=== PATIENT | female | born 1990 | race Caucasian/White ===

== ENCOUNTER → 2018-06-07 09:29 | Outpatient (CLI) | payer OTHER, SELFPAY | PROVIDERS: Visit Provider Physician Assistant | DX: R30.0 Dysuria (principal) | CPT/HCPCS: 87077; 87086; 87186 ==

== ENCOUNTER 2022-02-18 16:53 | Emergency (ER) | payer OTHER, SELFPAY ==
[2022-02-18 17:07] VITALS: BP 132/74; PULSE 70; RESP 17; TEMP 37; O2SAT 99; BMI 23.0
[2022-02-18] MEDS: SODIUM CHLORIDE 0.9% 1,000 ML 1000 ML IV (17:29)
[2022-02-18 17:44] LABS: Alanine Aminotransferase 13 IU/L (<35); Albumin 4.1 g/dL (3.5-5.0); Albumin Globulin Ratio 1.4 (1.0-2.8); Alkaline Phosphatase 47 U/L (38-126); Aspartate Aminotransferase 27 IU/L (14-36); BUN Creatinine Ratio 13.6 (6-22); Bilirubin Total 0.7 mg/dL (0.2-1.3); Blood Urea Nitrogen 8 mg/dL (7-17); Calcium 9.3 mg/dL (8.4-10.2); Carbon Dioxide 24 mmol/L (22-32); Chloride 102 mmol/L (98-107); Estimated Glomerular Filt Rate > 60 mL/min (>60); Globulin 2.9 g/dL (1.7-4.1); Glucose 99 mg/dL (70-100); HEMOLYSIS 20 (0-50); Potassium 3.7 mmol/L (3.4-5.1); Sodium 134 mmol/L (137-145)
[2022-02-18 17:46] LABS: Add Manual Diff / Slide Review NO; Basophils Absolute Auto 0 /uL (0-100); Basophils Percent Auto 0.4 % (0-2); Eosinophils Absolute Auto 100 /uL (0-450); Eosinophils Percent Auto 0.9 % (2-4); Hematocrit 36.7 % (36-46); Hemoglobin 12.9 g/dL (12.0-16.0); Lymphocytes Absolute Auto 1900 /uL (1100-4500); Lymphocytes Percent Auto 16.6 % (25-40); Mean Corpuscular HGB Conc 35.1 % (30-36); Mean Corpuscular Hemoglobin 30.8 PG (26-34); Mean Corpuscular Volume 87.8 fL (80-100); Monocytes Absolute Auto 900 /uL (0-900); Monocytes Percent Auto 7.6 % (3-14); Neutrophils Absolute Auto 8400 /uL (1500-7000); Neutrophils Percent Auto 74.5 % (50-75); Platelet Count 208 X10^3/uL (150-400); Red Blood Cell Count 4.18 X10^6/uL (4.0-5.2); Red Cell Distribution Width 12.9 % (11.6-14.8); White Blood Cell Count 11.3 X10^3/uL (4.5-11.0)
[2022-02-18 18:15] VITALS: PULSE 80; O2SAT 99
[2022-02-18 18:30] VITALS: PULSE 66; O2SAT 100
[2022-02-18 19:00] VITALS: PULSE 75; O2SAT 99
--- NOTE | 2022-02-18 19:12 | ED.NAVMDI ---
HPI - Nausea/Vomiting/Diarrhea <Michael Drew PA-C - Last Filed: 02/19/22 12:08> General Chief complaint: Nausea/Vomiting/Diarrhea Stated complaint: Dehydration, No BM in 5 Days, 8 wks Time Seen by Provider: 02/18/22 18:26 Source: patient Mode of arrival: Ambulatory History of Present Illness HPI Narrative: Patient to the emergency room today with complaint of nausea, vomiting and constipation. Patient states this started about 2 weeks ago. Patient states the nausea started 1st about 2 weeks ago which progressed to constipation which started on Monday of this week. Patient admits that she is 8 weeks and has had nausea since the start of her . Also states this is her 1st denies any abdominal pain or pain with urination. Has taken Colace MiraLax and milk of magnesia with no relief of the constipation. Has taken Zofran 4 mg and 8 mg tablets to not really the nausea patient missed her 1st OB appointment is on Monday of next week at 9:00 a.m.. Relates her vomiting to not taking Zofran. Eating every day a week continues abdominal bowel movement. Denies taking any pain medicines at this time. Related Data Home Medications Medication Instructions Recorded Confirmed ascorbic acid (vitamin C) 500 mg mg PO 06/07/18 07/19/18 capsule omega-3 fatty acids 1,000 mg 1,000 mg PO DAILY 06/07/18 07/19/18 capsule (Fish Oil Concentrate) prenat.vits,darren,vpd-augb-ydnok 1 tab PO DAILY 06/07/18 07/19/18 levonorgestrel 20 mcg/24 hours (7 intrauterine 06/18/18 07/19/18 yrs) 52 mg intrauterine device (Mirena) umm (Zingiber officinalis) 250 250 mg PO DAILY 02/15/22 02/15/22 mg capsule hydroxyzine pamoate 25 mg capsule 25 - 50 mg PO BEDTIME PRN 02/15/22 02/15/22 valacyclovir 500 mg tablet 500 mg PO BID PRN 02/15/22 02/15/22 Previous Rx's Medication Instructions Recorded ondansetron 4 mg disintegrating 4 mg PO Q6H PRN nausea and 02/17/22 tablet vomiting #30 tabs Allergies Allergy/AdvReac Type Severity Reaction Status Date / Time No Known Drug Allergies Allergy Verified 02/18/22 17:10 Review of Systems <Michael Drew PA-C - Last Filed: 02/19/22 12:08> Review of Systems Narrative: R.O.S.: General: No fever, chills, fatigue or other concerns. Cardiovascular: No chest pain, palpitations or other Cardiovascular related concerns. Respiratory: No S.O.B. or other Respiratory related concerns. HEENT: No congestion, ear pain, rhinorrhea, sore throat or tinnitus Gastrointestinal: Nausea vomiting and constipation Skin: No rash or associated abnormalities Neurological: Awake, alert and in not apparent distress. No Headaches, changes in vision or other related neurological concerns. 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) current occupational exposures/hazards: No special livan needs: No travel history: recent (domestic) seatbelt use: always helmet use: No (encouraged to do so) water heater temp set < 120 deg: No working smoke detector in home: Yes fire extinguisher in home: Yes carbon monox detector in home: Yes firearms in home: Yes firearms unloaded and locked: Yes do you feel safe at home: Yes Smoking Status: Former smoker second hand exposure: No alcohol intake: former (occasional glass beer/wine when not ) substance use type: marijuana (stopped when she learned she was ) during the past year weight has: remained stable well-balanced diet: about half the time daily servings fruits/ve-4 caffeine: Yes (Aware of 200mg limit) Type(s) of exercise: yoga Smoking Status: Former smoker alcohol intake frequency: 0-2 drinks per day Substance Use Type: does not use Exam <Michael Drew PA-C - Last Filed: 02/19/22 12:08> Initial Vital Signs Initial Vital Signs: Vital Signs Temperature 98.6 F 02/18/22 17:07 Pulse Rate 70 02/18/22 17:07 Respiratory Rate 17 02/18/22 17:07 Blood Pressure 132/74 02/18/22 17:07 Pulse Oximetry 99 02/18/22 17:07 Oxygen Delivery Method 02/18/22 17:07 Resp Effort & Inspection: normal respiratory effort Auscultation: clear to auscultation bilaterally Cardio Rate: regular rate Rhythm: regular rhythm Heart Sounds: S1 normal and S2 normal GI Inspection: normal to inspection Palpation: soft and No tender Percussion: normal to percussion Auscultation: normal bowel sounds <Joanne Walker DO - Last Filed: 02/20/22 07:04> Initial Vital Signs Initial Vital Signs: Vital Signs Temperature 98.6 F 02/18/22 17:07 Pulse Rate 70 02/18/22 17:07 Respiratory Rate 17 02/18/22 17:07 Blood Pressure 132/74 02/18/22 17:07 Pulse Oximetry 99 02/18/22 17:07 Oxygen Delivery Method 02/18/22 17:07 Course <Michael Drew PA-C - Last Filed: 02/19/22 12:08> Orders Ordered: Discontinued Medications Sodium Chloride (Normal Saline 0.9%) 1,000 mls @ 1,000 mls/hr IV BOLUS ONE Stop: 02/18/22 18:26 Last Infusion: 02/18/22 18:25 Dose: 0 mls/hr Documented By: Admin: 02/18/22 17:29 Dose: 1,000 mls/hr Documented By: TIKA Magnesium Citrate (Magnesium Citrate 300 Ml Solution) 300 ml PO NOW ONE Stop: 02/18/22 19:10 Vital Signs Vital signs: Vital Signs - 8 hr 02/18/22 17:07 02/18/22 18:15 02/18/22 18:30 Temperature 98.6 F Pulse Rate 70 80 66 Respiratory Rate 17 Blood Pressure 132/74 Pulse Oximetry 99 99 100 Oxygen Delivery Method Room Air <Joanne Walker DO - Last Filed: 02/20/22 07:04> Orders Ordered: Discontinued Medications Sodium Chloride (Normal Saline 0.9%) 1,000 mls @ 1,000 mls/hr IV BOLUS ONE Stop: 02/18/22 18:26 Last Infusion: 02/18/22 18:25 Dose: 0 mls/hr Documented By: Admin: 02/18/22 17:29 Dose: 1,000 mls/hr Documented By: TIKA Magnesium Citrate (Magnesium Citrate 300 Ml Solution) 300 ml PO NOW ONE Stop: 02/18/22 19:10 Vital Signs Vital signs: Vital Signs - 8 hr 02/18/22 17:07 02/18/22 18:15 02/18/22 18:30 Temperature 98.6 F Pulse Rate 70 80 66 Respiratory Rate 17 Blood Pressure 132/74 Pulse Oximetry 99 99 100 Oxygen Delivery Method Room Air MDM - Nausea/Vomiting/Diarrhea <Michael Drew PA-C - Last Filed: 02/19/22 12:08> Lab Data Result diagrams: 02/18/22 17:24 02/18/22 17:24 Labs: Lab Results 02/18/22 02/18/22 02/18/22 Range/Units 17:24 17:24 18:56 WBC 11.3 H (4.5-11.0) X10^3/uL RBC 4.18 (4.0-5.2) X10^6/uL Hgb 12.9 (12.0-16.0) g/dL Hct 36.7 (36-46) % MCV 87.8 (80-100) fL MCH 30.8 (26-34) PG MCHC 35.1 (30-36) % RDW 12.9 (11.6-14.8) % Plt Count 208 (150-400) X10^3/uL Neut % (Auto) 74.5 (50-75) % Lymph % (Auto) 16.6 L (25-40) % Hood % (Auto) 7.6 (3-14) % Eos % (Auto) 0.9 L (2-4) % Baso % (Auto) 0.4 (0-2) % Neut # (Auto) 8400 H (0081-2042) /uL Lymph # (Auto) 1900 (6809-6258) /uL Hood # (Auto) 900 (0-900) /uL Eos # (Auto) 100 (0-450) /uL Baso # (Auto) 0 (0-100) /uL Sodium 134 L (137-145) mmol/L Potassium 3.7 (3.4-5.1) mmol/L Chloride 102 (98-107) mmol/L Carbon Dioxide 24 (22-32) mmol/L BUN 8 (7-17) mg/dL Creatinine 0.59 (0.52-1.04) mg/dL Estimated GFR > 60 (>60) mL/min BUN/Creatinine Ratio 13.6 (6-22) Glucose 99 (70-100) mg/dL Calcium 9.3 (8.4-10.2) mg/dL Total Bilirubin 0.7 (0.2-1.3) mg/dL AST 27 (14-36) IU/L ALT 13 (<35) IU/L Alkaline Phosphatase 47 (38-126) U/L Total Protein 7.0 (6.3-8.2) g/dL Albumin 4.1 (3.5-5.0) g/dL Globulin 2.9 (1.7-4.1) g/dL Albumin/Globulin Ratio 1.4 (1.0-2.8) Urine RBC 1-5/hpf (0-5/HPF) Urine WBC 0-1/hpf (0-5/HPF) Ur Squamous Epith Cells 5-10 /hpf H (0-5/HPF) Amorphous Sediment 3+ Urine Bacteria Few (2-10) H (None) Ur Culture Indicated? [employer] Point of Care Testing Glucose POC 99 Urine Dip Bedside Urine Glucose Negative Bedside Urine Bilirubin - Negative Bedside Urine Ketone - Negative Urine Specific [place] 0.015 Bedside Urine Occult Blood +/- Bedside Urine pH 6.5 Bedside Urine Protein - Negative Bedside Urine Urobilinogen - Negative Bedside Urine Nitrite - Negative Bedside Urine Leukocytes +/- 15 Esterase MDM Narrative Medical decision making narrative: Insert emergency room with complaint of nausea vomiting and constipation about 2 weeks. Patient states she is 8 weeks and has noticed nausea vomiting constipation since that time. Patient is taking Colace MiraLax and milk of magnesia and Zofran with failure to relieve constipation and nausea. Patient received 1 L of fluid in the ER today and states she feels a little bloated afterwards. This provider of informed patient that these types of symptoms can be expected in early . This provider ordered Mag citrate and advised patient to purchase Fleet enema OTC. Provider also advised patient to attempt to manually disimpact stool. Urinary tract infection was ruled out by urine. Patient advised to return for any emergent concerns arise. Patient agrees with plan <Joanne Walker DO - Last Filed: 02/20/22 07:04> Lab Data Labs: Lab Results 02/18/22 02/18/22 02/18/22 Range/Units 17:24 17:24 18:56 WBC 11.3 H (4.5-11.0) X10^3/uL RBC 4.18 (4.0-5.2) X10^6/uL Hgb 12.9 (12.0-16.0) g/dL Hct 36.7 (36-46) % MCV 87.8 (80-100) fL MCH 30.8 (26-34) PG MCHC 35.1 (30-36) % RDW 12.9 (11.6-14.8) % Plt Count 208 (150-400) X10^3/uL Neut % (Auto) 74.5 (50-75) % Lymph % (Auto) 16.6 L (25-40) % Hood % (Auto) 7.6 (3-14) % Eos % (Auto) 0.9 L (2-4) % Baso % (Auto) 0.4 (0-2) % Neut # (Auto) 8400 H (3728-2303) /uL Lymph # (Auto) 1900 (6605-1101) /uL Hood # (Auto) 900 (0-900) /uL Eos # (Auto) 100 (0-450) /uL Baso # (Auto) 0 (0-100) /uL Sodium 134 L (137-145) mmol/L Potassium 3.7 (3.4-5.1) mmol/L Chloride 102 (98-107) mmol/L Carbon Dioxide 24 (22-32) mmol/L BUN 8 (7-17) mg/dL Creatinine 0.59 (0.52-1.04) mg/dL Estimated GFR > 60 (>60) mL/min BUN/Creatinine Ratio 13.6 (6-22) Glucose 99 (70-100) mg/dL Calcium 9.3 (8.4-10.2) mg/dL Total Bilirubin 0.7 (0.2-1.3) mg/dL AST 27 (14-36) IU/L ALT 13 (<35) IU/L Alkaline Phosphatase 47 (38-126) U/L Total Protein 7.0 (6.3-8.2) g/dL Albumin 4.1 (3.5-5.0) g/dL Globulin 2.9 (1.7-4.1) g/dL Albumin/Globulin Ratio 1.4 (1.0-2.8) Urine RBC 1-5/hpf (0-5/HPF) Urine WBC 0-1/hpf (0-5/HPF) Ur Squamous Epith Cells 5-10 /hpf H (0-5/HPF) Amorphous Sediment 3+ Urine Bacteria Few (2-10) H (None) Ur Culture Indicated? [employer] Point of Care Testing Glucose POC 99 Urine Dip Bedside Urine Glucose Negative Bedside Urine Bilirubin - Negative Bedside Urine Ketone - Negative Urine Specific [place] 0.015 Bedside Urine Occult Blood +/- Bedside Urine pH 6.5 Bedside Urine Protein - Negative Bedside Urine Urobilinogen - Negative Bedside Urine Nitrite - Negative Bedside Urine Leukocytes +/- 15 Esterase Discharge Plan Departure Patient Disposition: Home Clinical Impression: Nausea and vomiting during Instructions: Nausea and Vomiting-Adult Activity Restrictions/Additional Instructions: *You have been diagnosed with Nausea & Vomiting during . I have ordered some Magnesium Citrate to be issued to you prior to discharge. I suggest you take the Magnesium Citrate as ordered. I also suggest you continue to Take the Miralax and attempt to manual disimpact your stool. I also suggest you purchase fleet enemas OTC and use to assist with the Constipation. He should expect your nausea to continue during the 1st month of . Please continue to take the Zofran for nausea. I also suggest she return to the ER should any emergent concerns arise. [ ] *What to do: *Please continue to take your regular medications as directed. [ ] New medication prescriptions sent to your pharmacy: [ ] [ ] New medication written as a paper prescription [x] New medications given *Please follow up with your primary care provider in 2-3 days, call for an appointment. Let them know you were seen in the Emergency Department and that we ask that you be seen in follow up. We will electronically transmit a record of today's note if your PCP is in our system *If you do not have a primary care provider please contact the [facility] Resource line at [phone]. They will ask some questions about your medical history and help get you set up with a doctor in the community. *Return to Emergency Department if you should have any new, worsening or concerning symptoms, such as [fever greater than 101 F, shaking chills, worsening pain, persistent vomiting or other bothersome symptoms] Prescriptions: No Action omega-3 fatty acids [Fish Oil Concentrate] 1,000 mg capsule 1,000 mg PO DAILY prenat.vits,darren,prb-bkua-sntzw tablet 1 tab PO DAILY ascorbic acid (vitamin C) 500 mg capsule PO ondansetron 4 mg tablet,disintegrating 4 mg PO Q6H PRN (Reason: nausea and vomiting) Qty: 30 2RF levonorgestrel [Mirena] 20 mcg/24 hr (5 years) intrauterine device Intrauterine hydroxyzine pamoate 25 mg capsule 25 - 50 mg PO BEDTIME PRN valacyclovir 500 mg tablet 500 mg PO BID PRN umm (Zingiber officinalis) 250 mg capsule 250 mg PO DAILY Referrals: Joann Nation MD [Primary Care Provider] - Visit Report Forms: Patient Portal/API <Joanne Walker DO - Last Filed: 02/20/22 07:04> Cosign ED Attending Dorianature Attestation: I was immediately available in the department for consultation. Documentation has been reviewed. I agree with assessment and plan.
[2022-02-18 19:24] VITALS: BP 119/63; PULSE 71; O2SAT 99
[2022-02-18 19:26] LABS: Amorphous Sediment Urine 3+; Bacteria Urine Few (2-10); RBC Urine 1-5/HPF (0-5/HPF); Squamous Epithelial Cell Urine 5-10 /HPF (0-5/HPF); WBC Urine 0-1/HPF (0-5/HPF)
--- NOTE | 2022-02-18 19:32 | PC.NURSE ---
Mag citrate not given due to availability MD aware. Unable to document on MAR
== END 2022-02-18 19:33 | disposition home or self-care (01) ==
PROVIDERS: Emergency Medicine; Emergency Provider Physician Assistant; PCP Family Medicine
DX: O21.9 Vomiting of pregnancy, unspecified (principal); Z3A.08 8 weeks gestation of pregnancy
CPT/HCPCS: 36415; 80053; 81003; 81015; 82962; 85025; 87086; 96360; 99284

== ENCOUNTER → 2022-03-23 08:41 | Outpatient (CLI) | payer OTHER, SELFPAY ==
[2022-03-23 15:45] LABS: Add Manual Diff / Slide Review NO; Basophils Absolute Auto 0 /uL (0-100); Basophils Percent Auto 0.4 % (0-2); Eosinophils Absolute Auto 200 /uL (0-450); Eosinophils Percent Auto 2.1 % (2-4); Hematocrit 33.7 % (36-46); Hemoglobin 11.7 g/dL (12.0-16.0); Lymphocytes Absolute Auto 1800 /uL (1100-4500); Lymphocytes Percent Auto 18.9 % (25-40); Mean Corpuscular HGB Conc 34.6 % (30-36); Mean Corpuscular Hemoglobin 30.5 PG (26-34); Monocytes Absolute Auto 600 /uL (0-900); Monocytes Percent Auto 6.9 % (3-14); Neutrophils Absolute Auto 6700 /uL (1500-7000); Neutrophils Percent Auto 71.7 % (50-75); Platelet Count 202 X10^3/uL (150-400); Red Blood Cell Count 3.83 X10^6/uL (4.0-5.2); White Blood Cell Count 9.4 X10^3/uL (4.5-11.0)
[2022-03-24 16:44] LABS: Hepatitis B Surface Antigen NEGATIVE s/c (NEGATIVE); Rubella Antibody IgG 2.5 IU/mL (>15)
[2022-03-24 17:08] LABS: HIV 1 & 2 Ab/Ag 4th Gen Combo NEGATIVE (NEGATIVE); Hep C Virus Ab w/Reflex Quant NEGATIVE s/c (NEGATIVE)
[2022-03-25 04:55] LABS: RPR Screen Non Reactive (Non Reactive)
[2022-03-25 08:31] LABS: Varicella IgG Antibody <135 index (Immune >165)
== END ==
PROVIDERS: PCP Family Medicine; Referring Provider Obstetrics & Gynecology; Visit Provider Obstetrics & Gynecology
DX: Z34.01 Encounter for supervision of normal first pregnancy, first trimester (principal)
CPT/HCPCS: 36415; 80055; 86787; 86803; 86850; 86900; 86901; 87389

== ENCOUNTER → 2022-04-20 08:05 | Outpatient (CLI) | payer OTHER, SELFPAY ==
[2022-04-20 13:22] LABS: Appearance Urine UA CLEAR; Bilirubin Urine UA NEGATIVE (NEGATIVE); Color Urine UA YELLOW; Glucose Urine UA NEGATIVE (Negative); Ketones Urine UA NEGATIVE (NEGATIVE); Leukocyte Esterase Urine UA TRACE (NEGATIVE); Nitrite Urine UA NEGATIVE (Negative); Occult Blood Urine UA 1+ (Negative); Protein Urine UA TRACE (Negative); Urobilinogen Urine UA 0.2 E.U./dL (0.2)
[2022-04-20 13:28] LABS: pH Urine UA 7.5 (4.5-8.0)
[2022-04-20 13:29] LABS: Bacteria Urine Few (2-10); RBC Urine 0-1/HPF (0-5/HPF); Squamous Epithelial Cell Urine 1-5 /HPF (0-5/HPF); WBC Urine 0-1/HPF (0-5/HPF)
== END ==
PROVIDERS: PCP Family Medicine; Visit Provider Obstetrics & Gynecology
DX: Z34.01 Encounter for supervision of normal first pregnancy, first trimester (principal)
CPT/HCPCS: 81003; 81015; 87086

== ENCOUNTER → 2022-04-20 08:40 | Outpatient (CLI) | payer OTHER, SELFPAY ==
[2022-04-20 09:49] LABS: Hematocrit 33.2 % (36-46); Hemoglobin 11.4 g/dL (12.0-16.0); Mean Corpuscular HGB Conc 34.3 % (30-36); Mean Corpuscular Hemoglobin 30.8 PG (26-34); Mean Corpuscular Volume 89.8 fL (80-100); Platelet Count 174 X10^3/uL (150-400); Red Cell Distribution Width 13.5 % (11.6-14.8); White Blood Cell Count 8.3 X10^3/uL (4.5-11.0)
[2022-04-22 19:24] LABS: AFP Value 50.5 ng/mL (.); Gest Age on Col Date 17.7 weeks (.); Insulin Dep Diabetes No (.); OSBR Risk 1IN 6916 (.); Results Report (.); Test Results *Screen Negative* (.)
== END ==
PROVIDERS: PCP Family Medicine; Referring Provider Obstetrics & Gynecology; Visit Provider Obstetrics & Gynecology
DX: O99.012 Anemia complicating pregnancy, second trimester (principal); Z3A.17 17 weeks gestation of pregnancy
CPT/HCPCS: 36415; 81003; 81015; 82105; 85027; 87086

== ENCOUNTER → 2022-05-09 12:08 | Outpatient (CLI) | payer OTHER, SELFPAY ==
--- NOTE | 2022-05-09 12:09 | DI.US.S_ITS ---
PROCEDURE: US OB >= 14 WEEKS FETUS INDICATIONS: ANATOMY OUTSIDE/PRIOR DATING DATA: Last menstrual period (LMP): Unknown LMP-based estimated date of delivery (BLANCA): Unknown First dating scan (date and location): 02/23/2022 Estimated date of delivery (BLANCA) from first dating scan: 09/28/2022 The calculations are made using the working BLANCA of 3222 TECHNIQUE: Real-time scanning was performed of the fetus, with image documentation and biometric measurements. Endovaginal scanning: Not indicated COMPARISON: [facility], , US OB <= 14 WEEKS FETUS, 02/23/2022, 9:34. FINDINGS: General: A single living intrauterine gestation is present. Presentation: Vertex Placenta: Placental position is anterior, without previa. Amniotic fluid index: 12.2 cm, normal range is 5-24 cm. Single deepest vertical pocket is 5.0 cm. heart rate: 132 beats per minute. Maternal cervical canal: 3.6 cm long. Normal lower limit is 2.5 cm. biometrics: Biparietal diameter: 4.8 cm, 20 weeks, 4 days. Head circumference: 18.0 cm, 20 weeks, 3 days. Abdominal circumference: 15.3 cm, 20 weeks, 4 days. Femur length: 3.3 cm, 20 weeks, 1 day. Clinically estimated gestational age: 19 weeks, 5 days Composite gestational age from present scan: 20 weeks, 3 days Estimated weight and percentile: 350 grams, 82 percent. Anatomic survey: Neuro: Ventricles are non-dilated at less than 10 mm. Cisterna magna is normal at 3-11 mm. Cerebellum is normal in size and morphology. Nuchal skin fold: Normal at less than 6 mm between 14-21 weeks gestational age. Face: Nose and lips, facial profile are normal. Spine: No evidence for spina bifida. Heart: 4-chambered heart is present, with normal ventricular outflow tracts. Diaphragm: Diaphragm is intact. Stomach: Left-sided stomach is present. Kidneys: No hydronephrosis. Normal is less than 5 mm in 2nd trimester, less than 7 mm in 3rd trimester. Cord: 3-vessel cord has orthotopic insertion. Bladder: Normal in size. Extremities: All 4 extremities identified. IMPRESSION: 1. Single live intrauterine gestation with fetus in vertex presentation. heart rate is 132 beats per minute. Normal amount of amniotic fluid. Normal growth. Estimated weight is at 82 percent. 2. Normal anatomic survey. We strive to produce accurate, complete, and clear reports of imaging services. To assist us in improving patient care, this report was composed using standard report templates and voice recognition software. Therefore, it may contain abnormal punctuation, insertions and/or omissions. Occasional wrong-word or sound-alike substitutions may occur. Though we review the report and make efforts to correct it, we do recommend that the report be read carefully in proper context to recognize any text inaccuracies. Dictated by: Vincenzo Paulino M.D. on 05/10/2022 at 8:11 Approved by: Vincenzo Paulino M.D. on 05/10/2022 at 8:17
== END ==
PROVIDERS: PCP Family Medicine; Referring Provider Obstetrics & Gynecology; Visit Provider Obstetrics & Gynecology
DX: Z34.02 Encounter for supervision of normal first pregnancy, second trimester (principal); Z3A.20 20 weeks gestation of pregnancy
CPT/HCPCS: 76811

== ENCOUNTER → 2022-05-18 08:53 | Outpatient (CLI) | payer OTHER, SELFPAY | PROVIDERS: PCP Family Medicine; Visit Provider Obstetrics & Gynecology | DX: Z34.02 Encounter for supervision of normal first pregnancy, second trimester (principal); R35.0 Frequency of micturition; Z3A.24 24 weeks gestation of pregnancy | CPT/HCPCS: 87086 ==

== ENCOUNTER → 2022-06-20 09:11 | Outpatient (CLI) | payer OTHER, SELFPAY ==
[2022-06-20 10:48] LABS: Hematocrit 30.1 % (36-46); Hemoglobin 10.5 g/dL (12.0-16.0)
[2022-06-20 11:11] LABS: GTT (PREG) 1 Hour PP 50gm Dose 88 mg/dL (76-139)
== END ==
PROVIDERS: PCP Family Medicine; Referring Provider Obstetrics & Gynecology; Visit Provider Obstetrics & Gynecology
DX: Z34.02 Encounter for supervision of normal first pregnancy, second trimester (principal); Z3A.26 26 weeks gestation of pregnancy
CPT/HCPCS: 36415; 82950; 85014; 85018

== ENCOUNTER → 2022-08-03 08:35 | Outpatient (CLI) | payer OTHER, SELFPAY ==
[2022-08-03 09:19] LABS: Hematocrit 31.1 % (36-46); Hemoglobin 10.7 g/dL (12.0-16.0)
[2022-08-03 14:24] LABS: Urine N gonorrhoeae NOT DETECTED
[2022-08-03 14:26] LABS: Urine Chlamydia NOT DETECTED
== END ==
PROVIDERS: Obstetrics & Gynecology; PCP Family Medicine; Referring Provider Obstetrics & Gynecology; Visit Provider Obstetrics & Gynecology
DX: O99.019 Anemia complicating pregnancy, unspecified trimester (principal); Z3A.34 34 weeks gestation of pregnancy
CPT/HCPCS: 36415; 85014; 85018; 87491; 87591

== ENCOUNTER 2022-08-30 01:24 | Outpatient (CLI) | payer OTHER, SELFPAY ==
[2022-08-30 01:42] VITALS: BP 119/72
--- NOTE | 2022-08-30 01:48 | DI.US.S_ITS ---
PROCEDURE: US ABDOMEN LIMITED INDICATIONS: RUQ PAIN; VOMITING TECHNIQUE: Real-time scanning was performed of the abdominal and retroperitoneal organs, with image documentation. COMPARISON: [facility], US, US OB >= 14 WEEKS FETUS, 06/15/2022, 8:56. FINDINGS: Liver: Liver is normal in size and homogeneous in echotexture. Gallbladder: There is gallbladder sludge. No gallbladder wall thickening, pericholecystic fluid or sonographic Quiroz's sign. Biliary ducts: Intrahepatic bile ducts are non-dilated. Extrahepatic bile duct caliber measures 4.4 mm. Normal is 6-7 mm or less in diameter, or 10 mm or less post-cholecystectomy. Pancreas: Visualized portions of the pancreas are sonographically normal. Right: Right kidney measures 12.8 cm long. There is moderate right hydronephrosis. No hydronephrosis or nephrolithiasis. No solid masses. Aorta: Visualized aorta is normal in caliber at less than 3 cm. Iliacs: Proximal common iliac arteries are normal in caliber at less than 2.5 cm. IVC: Intrahepatic inferior vena cava is patent. Miscellaneous: Minimal free abdominal fluid. IMPRESSION: 1. There is gallbladder sludge. No ultrasound findings to suggest acute cholecystitis. 2. Moderate right hydronephrosis. Dictated by: Dominic Mehta M.D. on 08/30/2022 at 8:13 Approved by: Dominic Mehta M.D. on 08/30/2022 at 8:17
== END 2022-08-30 03:02 | disposition home or self-care (01) ==
LOC: LABOR 01:26 → OB 09-01 13:49
PROVIDERS: PCP Family Medicine; Referring Provider Obstetrics & Gynecology; Visit Provider Obstetrics & Gynecology
DX: O21.9 Vomiting of pregnancy, unspecified (principal); O26.893 Other specified pregnancy related conditions, third trimester; R10.11 Right upper quadrant pain; Z3A.36 36 weeks gestation of pregnancy
CPT/HCPCS: 59025; 76705; G0378; G0379

== ENCOUNTER → 2022-08-31 09:32 | Outpatient (CLI) | payer OTHER, SELFPAY ==
[2022-09-01 12:47] LABS: Strep Grp B PCR NEG for Grp B Strep
== END ==
PROVIDERS: PCP Family Medicine; Visit Provider Obstetrics & Gynecology
DX: Z34.03 Encounter for supervision of normal first pregnancy, third trimester (principal); Z3A.36 36 weeks gestation of pregnancy
CPT/HCPCS: 87653

== ENCOUNTER 2022-09-15 16:22 | Inpatient (IN) | payer OTHER, SELFPAY ==
--- NOTE | 2022-09-15 19:17 | P.HPOB_ITS ---
OB HPI Date/Time Date of admission: 09/15/22 Date Patient Seen: 09/15/22 Time Patient Seen: 17:45 History of Present Condition Chief complaint: Pre-labor rupture of membranes at term BLANCA Calculator Estimated Delivery Date Method Current WG Current Estimate 09/24/22 LMP (Uncertain) 38w 5d Other Estimates 09/29/22 Ultrasound #1 38w 0d Estimated Gestational Age (weeks): 38w5d : 1 Para: 0 Narrative: PROM at 1445 on 09/15/22 with clear fluid. Laid down to rest and it continued to gush so she headed in to the hospital. Had some contractions yesterday; not feeling many today. Did not feel 3-4 contractions picked up on admission heart rate tracing. Consents to pitocin augmentation. Will likely get epidural. Has plan. Baby girl, Wes Horan. care: good care, initiated at week # (9), number of visits (11) and pounds weight gain (36) Dating criteria OB: LMP confirmed by 1st trimester US Ultrasounds: normal 1st trimester US and normal mid trimester US Obstetrical complications: none Medical complications OB: none Narrative: normal cfDNA, girl. Normal MASFP. Nml anatomy US Preadmission Labs Last OB Lab Results: Blood Type O Positive 03/23/22 15:16 Antibody Screen Negative 03/23/22 15:16 Hematocrit 31.1 % (36-46) L 08/03/22 08:44 Hemoglobin 10.7 g/dL (12.0-16.0) L 08/03/22 08:44 Hepatitis B Surface Antigen Negative s/c (NEGATIVE) 03/23/22 15 :16 Hepatitis C Antibody Negative s/c (NEGATIVE) 03/23/22 15:16 Rubella Antibody 2.5 IU/mL (>15) L 03/23/22 15:16 Varicella-Zoster IgG Antibody <135 index (Immune >165) L 15:16 Glucose 1 Hour 88 mg/dL (76-139) 06/20/22 09:16 Group B Streptococcus (PCR) Neg for grp b strep 08/31/22 09:32 Evaluation Evaluation Baseline heart rate: 125 Variability: Moderate (11-25) monitor accelerations: Present Monitor Decelerations: Periodic and Variable Contraction Frequency (minutes): 6 Uterine Contraction Intensity: Mild Category of Tracing: Reactive Dilation (cm): 4 Effacement (%): 70 Dilation: 3-4 cm Effacement: 60-70% station: -2 Position of cervix: posterior Consistency: soft Samuels score: 7 Comments: Grossly ruptures. No bag felt on exam. 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 occupational exposures/hazards: No special livan needs: No travel history: recent (domestic) seatbelt use: always helmet use: No (encouraged to do so) water heater temp set < 120 deg: No working smoke detector in home: Yes fire extinguisher in home: Yes carbon monox detector in home: Yes firearms in home: Yes firearms unloaded and locked: Yes do you feel safe at home: Yes Smoking Status: Never smoker second hand exposure: No alcohol intake: former (occasional glass beer/wine when not ) substance use type: marijuana (stopped when she learned she was ) during the past year weight has: remained stable well-balanced diet: about half the time daily servings fruits/ve-4 caffeine: Yes (Aware of 200mg limit) Type(s) of exercise: yoga Meds Home Medications and Allergies Home Medications Medication Instructions Recorded Confirmed Type ascorbic acid (vitamin C) 500 mg 500 mg PO BID 06/07/18 09/13/22 History capsule prenat.vits,darren,wct-xpei-qjeoe 1 tab PO DAILY 06/07/18 09/13/22 History valacyclovir 500 mg tablet 500 mg PO BID #180 tabs 04/20/22 09/13/22 Rx (Valtrex) ferrous sulfate 325 mg (65 mg 325 mg PO DAILY #90 tabs 06/22/22 09/13/22 Rx iron) tablet double electric breast pump 1 ea topical .prn #1 ea 07/18/22 09/13/22 Rx doxylamine succinate 25 mg tablet 25 mg PO BEDTIME 08/30/22 09/13/22 History (Unisom (doxylamine)) famotidine 20 mg tablet 20 mg PO BID 08/30/22 09/13/22 History Allergies Allergy/AdvReac Type Severity Reaction Status Date / Time No Known Drug Allergies Allergy Verified 09/13/22 14:00 Review of Systems Review of Systems Narrative: All negative except as reviewed in HPI. OB Exam Vital signs Blood Pressure: 126/71 Pulse Rate: 82 Respiratory Rate: 18 Temperature: 36.5 F Resp Effort & Inspection: normal respiratory effort and able to speak in complete sentences Auscultation: clear to auscultation bilaterally Cardio Rate: regular rate Rhythm: regular rhythm Heart Sounds: S1 normal and S2 normal Extremities Lower extremity: Yes normal to inspection DTR's: Rt Patellar: 2+ and Lt Patellar: 2+ GI Inspection: normal to inspection External Female Exam: Yes normal external appearance Presentation: vertex Estimated Weight (lbs): 7 Amniotic Fluid: clear Other: SVE: 4/70/-2/soft/posterior Assessment and Plan Assessment and Plan Assessment and Plan narrative: at 38w5d PROM x 6 hours GBS neg Rh positive Anemia of HSV, treated with acyclovir NKDA Heartburn of Rubella non-immune Plan: Review plan in detail. Recommend pitocin or going home for expectant management. Admit to L&D for labor augmentation. Recommend AMTSL due to anemia of Epidural as desired. Anticipate . Time Spent with Patient Total time spent with greater than 50% in coordination of care (as documented) at patient's floor/unit and/or counseling patient:: 25 - 35 minutes
[2022-09-15 19:50] VITALS: BP 126/71; PULSE 82; RESP 18; TEMP 2.5; TEMP 36.5
[2022-09-15 20:08] LABS: Add Manual Diff / Slide Review NO; Basophils Absolute Auto 0 /uL (0-100); Basophils Percent Auto 0.2 % (0-2); Eosinophils Absolute Auto 100 /uL (0-450); Eosinophils Percent Auto 1.1 % (2-4); Hematocrit 30.5 % (36-46); Hemoglobin 10.4 g/dL (12.0-16.0); Lymphocytes Absolute Auto 1800 /uL (1100-4500); Lymphocytes Percent Auto 17.6 % (25-40); Monocytes Absolute Auto 800 /uL (0-900); Monocytes Percent Auto 7.4 % (3-14); Neutrophils Absolute Auto 7700 /uL (1500-7000); Neutrophils Percent Auto 73.7 % (50-75); Platelet Count 141 X10^3/uL (150-400); Red Blood Cell Count 3.35 X10^6/uL (4.0-5.2); Red Cell Distribution Width 13.5 % (11.6-14.8); White Blood Cell Count 10.4 X10^3/uL (4.5-11.0)
[2022-09-15] MEDS: LACTATED RINGERS 1,000 ML 100 ML IV ×3 (20:15→22:55)
[2022-09-15] MEDS: OXYTOCIN PREMIX 30 UNIT/500 ML PLAST..BAG IV (20:25)
[2022-09-15] MEDS: FENT 2MCG/ML BUPIV 0.125% EPI 200 MCG/100 ML PLAST..BAG 12 MCG EPIDURAL (22:10)
[2022-09-15] MEDS: ePHEDrine 50 MG/ML VIAL IV (22:45)
[2022-09-16] MEDS: FENT 2MCG/ML BUPIV 0.125% EPI 200 MCG/100 ML PLAST..BAG 12 MCG EPIDURAL (03:40)
--- NOTE | 2022-09-16 05:37 | PM.OBPNLAB ---
Date/Time Date Patient Seen: 09/16/22 Time Patient Seen: 03:30 Pain Control Pain control: epidural (comfortable) Comments: Anamaria got epidural when things got intense; feeling comfortable now. Pelvic Exam Dilation (cm): 10 Effacement (%): 100 station: +1 Amniotic membrane status: Ruptured (clear fluid) Contractions Contraction frequency (min): 3 Contraction duration (min): 70 Contraction pattern: Regular Contraction intensity: Strong/Firm Status status: Category ll (blue) Heart Rate Baseline: 120 Monitor Accelerations: Present Monitor Decelerations: Variable Monitor Variability: Moderate Assessment and Plan Assessment: other (2nd stage labor) Comments: at 38w6d GBS neg PROM x 13 hours Rh positive 2nd stage labor FHR Cat 2 blue Labor down x 1 hour Anticipate
--- NOTE | 2022-09-16 05:45 | PM.OBPRVD ---
Events: Labor Augmentation and Premature Rupture Membrane ((prelabor at term)) Labor & Delivery Delivery date: 09/16/22 Intrapartal Events: None Cervical ripening method: none Induction method: none Delivery augmentation: pitocin Delivery monitor: external FHT and external uterine Route of delivery: L&D Laceration Description: Perineal - 1st Degree Delivery repair: other (none) Quantitative Blood Loss: 101 Anesthesia Type: Epidural Complications: none Narrative: Anamaria labored down x 1 hour. When pushing was initiated at 0448, it was clear that she would not push long. Anamaria pushed in lithotomy position, well supported by her and RN. This CNM at bedside for pushing, providing perineal support. NSVB at 0514 of vigorous baby girl, immediately placed skin to skin with Anamaria. Apgars 9/9. First degree perineal laceration hemostatic and not repaired. Placenta delivered spontaneously with maternal effort AT 0525. QBL 101 mL. Anamaria and Hitesh thrilled to meet their daughter, Wes Horan. [place] Baby 1: Infant gender: Female Presentation: vertex Position: Left Occiput Transverse Placenta delivery description: Spontaneous Cord Vessel Description: 3 Vessels score (1 min): 9 score (5 min): 9 Plan for aftercare: Routine care
[2022-09-16] MEDS: ACETAMINOPHEN 325 MG TABLET 975 MG PO ×2 (07:06→20:18)
[2022-09-16] MEDS: DERMOPLAST SPRAY 20% 60 ML 1 SPRAY TOP (07:07)
[2022-09-16] MEDS: KETOROLAC 30 MG/ML VIAL IV (09:31)
[2022-09-16 18:16] LABS: Add Manual Diff / Slide Review NO; Basophils Absolute Auto 0 /uL (0-100); Basophils Percent Auto 0.3 % (0-2); Eosinophils Absolute Auto 100 /uL (0-450); Eosinophils Percent Auto 0.7 % (2-4); Hematocrit 28.3 % (36-46); Hemoglobin 9.7 g/dL (12.0-16.0); Lymphocytes Absolute Auto 1700 /uL (1100-4500); Mean Corpuscular HGB Conc 34.1 % (30-36); Mean Corpuscular Hemoglobin 30.9 PG (26-34); Mean Corpuscular Volume 90.5 fL (80-100); Monocytes Absolute Auto 900 /uL (0-900); Monocytes Percent Auto 7.9 % (3-14); Neutrophils Absolute Auto 8700 /uL (1500-7000); Neutrophils Percent Auto 76.1 % (50-75); Platelet Count 130 X10^3/uL (150-400); Red Blood Cell Count 3.13 X10^6/uL (4.0-5.2); Red Cell Distribution Width 13.6 % (11.6-14.8); White Blood Cell Count 11.4 X10^3/uL (4.5-11.0)
[2022-09-16] MEDS: IBUPROFEN 600 MG TABLET PO (20:18)
[2022-09-17] MEDS: ACETAMINOPHEN 325 MG TABLET 975 MG PO (05:50)
[2022-09-17] MEDS: IBUPROFEN 600 MG TABLET PO (05:50)
--- NOTE | 2022-09-17 11:09 | P.DS_ITS ---
Discharge Providers Provider Date of admission: 09/15/22 16:22 Discharge Date: 09/17/22 Primary care physician: Joann Nation MD Consults: 09/17/22 05:55 Consult to Well Drill Operator Rotary Drill Routine Comment: 09/17/22 07:24 Consult to Well Drill Operator Rotary Drill Routine Comment: Discharge provider: Nimisha Dominguez CNM, ARNP Summary Hospital Course Date Patient Seen: 09/17/22 Time Patient Seen: 11:10 Diagnoses: Normal course Hospital Course: PROM at 4 cm; pitocin augmentation for 30 min then spontaneous labor led to NSVB of baby girl without complications. Normal course. Breast feeding. Peripartum Data Infant Delivery Method: Natural Vaginal Laceration Description: Perineal - 1st Degree complications: none [place] 1: Gender: Female Disposition of : home Discharge Diagnosis (1) (normal spontaneous vaginal delivery): Status: Acute (2) Anemia affecting in third trimester: Status: Acute Problem Details: Recommend Blood Builder BID x 6 weeks. D/c ferrous sulfate due to significant GI issues and poor absorption. Status at Discharge Cognitive/behavioral status at discharge: at baseline, oriented Functional status at discharge: independent ambulation Overall status at discharge: patient is progressing back to baseline Time Spent with Patient Time attestation: Total time spent providing and/or coordinating discharge services: Time spent: Less than 30 minutes Specific discharge activities: Reviewed warning signs including bleeding, mood changes, sleep expectations, blood clot risk. Breast feeding support provided. Recommend rest x 2 weeks then slow return to normal activities. Objective Labs 09/16/22 18:03 Labs: Laboratory Results - last 24 hr 09/16/22 18:03 WBC 11.4 H RBC 3.13 L Hgb 9.7 L Hct 28.3 L MCV 90.5 MCH 30.9 MCHC 34.1 RDW 13.6 Plt Count 130 L Neut % (Auto) 76.1 H Lymph % (Auto) 15.0 L [place] % (Auto) 7.9 Eos % (Auto) 0.7 L Baso % (Auto) 0.3 Neut # (Auto) 8700 H Lymph # (Auto) 1700 [place] # (Auto) 900 Eos # (Auto) 100 Baso # (Auto) 0 Exam Vital Signs (past 8 hours): 123/72 63 bpm 16 resps/min 98.7 F HENMT Head: normal to inspection and normocephalic Nose: external nose normal Mouth: oral mucosae normal and lip normal Neck Neck: normal visual inspection Resp Effort & Inspection: normal respiratory effort General: other (Fundus firm @ U) Skin General: no rashes or lesions noted Other: No LE edema noted Neuro General: patient oriented x3 and normal light touch, pain and propioception Cognition: normal cognition Speech: speech normal Gait: normal gait Sensory Exam: no sensory deficits noted Extrem General: normal to inspection and full ROM Psych Appearance: grossly normal Discharge Plan Discharge Plan Patient Disposition: Home Provider Discharge Comment: Discharge home with and Discharge orders & Medications Prescriptions: Continued prenat.vits,darren,[id number] tablet 1 tab PO DAILY ascorbic acid (vitamin C) 500 mg capsule 500 mg PO BID double electric breast pump 1 ea topical .prn Qty: 1 0RF Rx Instructions: With supplies Discontinued ferrous sulfate 325 mg (65 mg iron) tablet 325 mg PO DAILY Qty: 90 2RF valacyclovir [Valtrex] 500 mg tablet 500 mg PO BID Qty: 180 1RF Unisom (doxylamine) 25 mg Tablet 25 mg PO BEDTIME famotidine 20 mg Tablet 20 mg PO BID Follow up/Referrals: Abimbola Eugene MD [Physician] - 6 Weeks (Please call clinic and make an appointment with your OB provider for a six week visit. ) Diet/Activity/Treatments Diet: Diet as Tolerated and Regular Skin/Wound/Dressing Care Report to your healthcare provider any signs of infection, such as:: chills, fever, unusual drainage and unusual redness Visit Report/Discharge Packet Instructions: Women's Health Study Report: Depression, Control for Women, DI for Labor and Delivery, Vaginal , DI for Post Depression, DI for and Nipple Soreness Stand Alone Forms: Patient Portal/API, Stroke Signs & Symptoms Discharge Data Primary Care Provider: Joann Nation
[2022-09-17] MEDS: MEASLES,MUMPS,RUBELLA VACC/PF 0.5 ML VIAL SUBCUT (11:33)
[2022-09-17 12:25] VITALS: BP 123/72; PULSE 63; RESP 16; TEMP 37.1
== END 2022-09-17 12:25 | disposition home or self-care (01) | DRG 806 ==
PROVIDERS: Advanced Practice Midwife; Admitting Provider Obstetrics & Gynecology; PCP Family Medicine; Referring Provider Obstetrics & Gynecology; Visit Provider Obstetrics & Gynecology
DX: O42.02 Full-term premature rupture of membranes, onset of labor within 24 hours of rupture (principal); O98.52 Other viral diseases complicating childbirth; Z37.0 Single live birth; Z3A.38 38 weeks gestation of pregnancy; B00.9 Herpesviral infection, unspecified; O99.02 Anemia complicating childbirth; D64.89 Other specified anemias
CPT/HCPCS: 36415; 59025; 59050; 85025; 86850; 86900; 86901; G0379; J1885; J2590

== ENCOUNTER → 2023-04-13 08:18 | Outpatient (CLI) | payer OTHER, SELFPAY ==
[2023-04-13 09:34] LABS: Add Manual Diff / Slide Review NO; Basophils Absolute Auto 100 /uL (0-100); Basophils Percent Auto 0.7 % (0-2); Eosinophils Absolute Auto 400 /uL (0-450); Eosinophils Percent Auto 5.7 % (2-4); Hematocrit 44.3 % (36-46); Hemoglobin 14.9 g/dL (12.0-16.0); Lymphocytes Absolute Auto 1700 /uL (1100-4500); Mean Corpuscular HGB Conc 33.7 % (30-36); Mean Corpuscular Hemoglobin 30.5 PG (26-34); Mean Corpuscular Volume 90.4 fL (80-100); Monocytes Absolute Auto 600 /uL (0-900); Monocytes Percent Auto 7.8 % (3-14); Neutrophils Absolute Auto 4400 /uL (1500-7000); Neutrophils Percent Auto 61.8 % (50-75); Platelet Count 210 X10^3/uL (150-400); Red Cell Distribution Width 13.7 % (11.6-14.8); White Blood Cell Count 7.1 X10^3/uL (4.5-11.0)
[2023-04-13 09:59] LABS: Alanine Aminotransferase 18 IU/L (<35); Albumin 4.5 g/dL (3.5-5.0); Albumin Globulin Ratio 1.7 (1.0-2.8); Alkaline Phosphatase 69 U/L (38-126); Aspartate Aminotransferase 22 IU/L (14-36); BUN Creatinine Ratio 17.2 (6-22); Bilirubin Total 1.1 mg/dL (0.2-1.3); Blood Urea Nitrogen 11 mg/dL (7-17); Calcium 9.9 mg/dL (8.4-10.2); Carbon Dioxide 24 mmol/L (22-32); Chloride 104 mmol/L (98-107); Estimated Glomerular Filt Rate > 60 mL/min (>60); Globulin 2.7 g/dL (1.7-4.1); Glucose 94 mg/dL (70-100); HEMOLYSIS < 15 (0-50); Potassium 4.1 mmol/L (3.4-5.1); Sodium 138 mmol/L (137-145); Total Protein 7.2 g/dL (6.3-8.2)
[2023-04-13 10:15] LABS: TSH w/ Reflex to FT4 0.61 uIU/mL (0.47-4.68)
== END ==
PROVIDERS: PCP Family Medicine; Referring Provider Family Medicine; Visit Provider Family Medicine
DX: D64.9 Anemia, unspecified (principal)
CPT/HCPCS: 36415; 80053; 84443; 85025

== ENCOUNTER → 2024-11-18 15:10 | Outpatient (CLI) | payer OTHER, SELFPAY ==
[2024-11-18 16:59] LABS: Add Manual Diff / Slide Review NO; Basophils Absolute Auto 0 /uL (0-100); Basophils Percent Auto 0.4 % (0-2); Eosinophils Absolute Auto 100 /uL (0-450); Eosinophils Percent Auto 1.6 % (2-4); Hematocrit 43.1 % (36-46); Hemoglobin 14.6 g/dL (12.0-16.0); Lymphocytes Absolute Auto 1100 /uL (1100-4500); Lymphocytes Percent Auto 17.8 % (25-40); Mean Corpuscular HGB Conc 33.9 % (30-36); Mean Corpuscular Hemoglobin 31.1 PG (26-34); Mean Corpuscular Volume 91.8 fL (80-100); Monocytes Absolute Auto 700 /uL (0-900); Monocytes Percent Auto 10.5 % (3-14); Neutrophils Absolute Auto 4500 /uL (1500-7000); Neutrophils Percent Auto 69.7 % (50-75); Platelet Count 204 X10^3/uL (150-400); Red Blood Cell Count 4.69 X10^6/uL (4.0-5.2); Red Cell Distribution Width 13.5 % (11.6-14.8); White Blood Cell Count 6.4 X10^3/uL (4.5-11.0)
[2024-11-18 17:25] LABS: Alanine Aminotransferase 17 IU/L (<35); Albumin 4.7 g/dL (3.5-5.0); Albumin Globulin Ratio 1.7 (1.0-2.8); Alkaline Phosphatase 72 U/L (38-126); Aspartate Aminotransferase 20 IU/L (14-36); BUN Creatinine Ratio 15.6 (6-22); Blood Urea Nitrogen 12 mg/dL (7-17); Calcium 9.6 mg/dL (8.4-10.2); Carbon Dioxide 26 mmol/L (22-32); Chloride 102 mmol/L (98-107); Estimated Glomerular Filt Rate > 60 mL/min (>60); Globulin 2.7 g/dL (1.7-4.1); Glucose 84 mg/dL (70-99); HEMOLYSIS < 15 (0-50); Sodium 139 mmol/L (137-145); Total Protein 7.4 g/dL (6.3-8.2)
== END ==
PROVIDERS: PCP Family Medicine; Referring Provider Family Medicine; Visit Provider Family Medicine
DX: K52.9 Noninfective gastroenteritis and colitis, unspecified (principal)
CPT/HCPCS: 36415; 80053; 85025